=== PATIENT | female | born 1960 | race Caucasian/White ===

== ENCOUNTER 2018-02-14 09:44 | Day surgery (SDC) | payer OTHER ==
[2018-02-14 10:07] VITALS: TEMP 97.8
[2018-02-14] MEDS ORDERED: DEXAMETHASONE SOD PHOS PF 10 MG/ML SOL IJ ONE (10:17)
[2018-02-14] MEDS ORDERED: BUPIVACAINE HCL 0.25% MPF 30 ML SOL INFIL ONE (10:18)
[2018-02-14 10:52] VITALS: BP 164/78; PULSE 60; RESP 12; O2SAT 97
== END 2018-02-14 10:56 | disposition home or self-care (01) | DRG 552 ==
LOC: SURG 09:44
PROVIDERS: ATTEND Nurse Anesthetist, Certified Registered
DX: M51.17 Intervertebral disc disorders with radiculopathy, lumbosacral region (principal)
CPT/HCPCS: J1100